=== PATIENT | female | born 1980 | race Two or more races ===

== ENCOUNTER 2023-05-16 18:29 | Inpatient (IN) | payer BC, OTHER ==
[~2023-05-16] VITALS: Ht 162.6 cm; Wt 115.8 kg
[2023-05-16] MEDS ORDERED: BACDST PO (19:01)
[2023-05-16] MEDS ORDERED: VANCOMYCIN 1GM/250ML 250 ML IV ONE (19:45)
[2023-05-16] MEDS ORDERED: PIPERACILLIN-TAZO 4.5GM 100 ML IV ONE (19:45)
[2023-05-16 20:20] LABS: Basophils # (auto) 0 10 ^3/uL (0-0.2); Basophils % (auto) 0.6 % (0.0-2.0); Eosinophils # (auto) 0.3 10 ^3/uL (0-0.8); Eosinophils % (auto) 3.8 % (0.0-7.0); Hematocrit 42.9 % (36.0-46.0); Hemoglobin 14.8 g/dL (12.2-16.2); Lymphocytes # (auto) 2.2 10 ^3/uL (0.4-5.4); Lymphocytes % (auto) 30.1 % (10.0-50.0); Mean Corpuscular Hemoglobin 31.2 pg (28.0-32.0); Mean Corpuscular Hgb Conc. 34.4 g/dL (32.0-36.0); Mean Corpuscular Volume 90.6 fL (80.0-100.0); Monocytes # (auto) 0.5 10 ^3/uL (0-1.3); Monocytes % (auto) 7.6 % (0.0-12.0); Neutrophils # (auto) 4.2 10 ^3/uL (1.6-8.6); Neutrophils % (auto) 57.9 % (37.0-80.0); Nucleated Red Blood Cells % 0.1 %; Red Blood Cells 4.73 10^6/uL (4.0-5.20); White Blood Cell 7.2 10^3/uL (4.4-10.8)
[2023-05-16 20:49] LABS: Alanine Aminotransferase 44 U/L (7-40); Alkaline Phosphatase 80 U/L (46-116); Anion Gap 3 (5-15); Aspartate Aminotransferase 41 U/L (13-40); BUN/Creatinine Ratio 9.3 (10.0-20.0); Blood Urea Nitrogen 7 mg/dL (9-23); Calcium 9.4 mg/dL (8.5-10.1); Carbon Dioxide 28 mmol/L (20-30); Chloride 104 mmol/L (98-107); Glucose 249 mg/dL (74-106); Potassium 4.2 mmol/L (3.5-5.1); Sodium 135 mmol/L (136-145)
[2023-05-16 20:50] LABS: Bilirubin, Total 0.5 mg/dL (0.2-1.0); Total Protein 7.4 g/dL (5.7-8.2)
[2023-05-16 22:58] LABS: Erythrocyte Sedimentation Rate 16 mm/hr (0-20)
[2023-05-16] MEDS ORDERED: hydrALAZINE HCL 20 MG/ML VL IV PRN (23:00)
[2023-05-16] MEDS ORDERED: HYDROcodone-ACET 5/325MG TAB PO PRN (23:00)
[2023-05-16] MEDS ORDERED: DEXTROSE (50%) 50ML SYRG IV PRN (23:00)
[2023-05-16] MEDS ORDERED: MORPHINE SULFATE INJ 2 MG/ml SYRG IV PRN (23:00)
[2023-05-16] MEDS ORDERED: ACETAMINOPHEN 325 MG TAB PO PRN (23:00)
[2023-05-16] MEDS ORDERED: ONDANSETRON HCL 4 MG/2 ML VIAL IV PRN (23:00)
[2023-05-16] MEDS ORDERED: NITROGLYCERIN 0.4 MG SL TAB SL PRN (23:00)
[2023-05-16] MEDS ORDERED: VANCOMYCIN PER PHARMACY 0 MG IV SCH (23:00)
[2023-05-16 23:25] VITALS: PULSE 92; RESP 16; O2SAT 96
[2023-05-16] MEDS: SODIUM CHLORIDE 0.9% 1,000 ML IV SCH (23:43)
[2023-05-17 01:01] LABS: Urine Blood Negative /uL (Negative); Urine Clarity Clear (Clear); Urine Color Yellow (Yellow); Urine Protein, UAD Negative (Negative); Urine Specific Gravity 1.022 (1.001-1.035); Urine Urobilinogen Normal (Negative); Urine WBC <1 /hpf (0 - 5)
[2023-05-17 01:02] LABS: Urine Bacteria NONE SEEN /hpf (None Seen)
[2023-05-17 06:17] LABS: Basophils # (auto) 0 10 ^3/uL (0-0.2); Basophils % (auto) 0.8 % (0.0-2.0); Eosinophils # (auto) 0.3 10 ^3/uL (0-0.8); Eosinophils % (auto) 5.4 % (0.0-7.0); Hematocrit 42.7 % (36.0-46.0); Hemoglobin 14.4 g/dL (12.2-16.2); Lymphocytes # (auto) 2.3 10 ^3/uL (0.4-5.4); Lymphocytes % (auto) 38.1 % (10.0-50.0); Mean Corpuscular Hemoglobin 30.9 pg (28.0-32.0); Mean Corpuscular Hgb Conc. 33.7 g/dL (32.0-36.0); Mean Corpuscular Volume 91.7 fL (80.0-100.0); Monocytes # (auto) 0.6 10 ^3/uL (0-1.3); Monocytes % (auto) 10.4 % (0.0-12.0); Neutrophils # (auto) 2.7 10 ^3/uL (1.6-8.6); Neutrophils % (auto) 45.3 % (37.0-80.0); Nucleated Red Blood Cells % 0.1 %; Red Blood Cells 4.66 10^6/uL (4.0-5.20); Red Cell Distribution Width 13.2 % (11.8-14.3)
[2023-05-17 06:41] LABS: Chloride 106 mmol/L (98-107); Potassium 3.9 mmol/L (3.5-5.1); Sodium 136 mmol/L (136-145)
[2023-05-17 06:42] LABS: Anion Gap 7 (5-15); Carbon Dioxide 23 mmol/L (20-30)
[2023-05-17 06:47] LABS: BUN/Creatinine Ratio 9.4 (10.0-20.0); Blood Urea Nitrogen 6 mg/dL (9-23); Glucose 113 mg/dL (74-106)
[2023-05-17] MEDS: InsuLIN REG 1unit/0.01ml Soln (100units/ml) SC SCH ×3 (08:02→17:00)
[2023-05-17] MEDS: ACCU-CHEK COMFORT CURVE STRIP VI SCH ×4 (08:03→21:20)
[2023-05-17] MEDS: PIPERACILLIN-TAZOB 3.375GM 100 ML IV SCH ×3 (08:18→17:30)
[2023-05-17] MEDS: SODIUM CHLORIDE 0.9% 1,000 ML IV SCH ×2 (09:02→19:53)
[2023-05-17 10:03] VITALS: BP 146/67; PULSE 93; RESP 18; TEMP 98.2; O2SAT 99
[2023-05-17 10:20] VITALS: BP 146/67; PULSE 93; RESP 17; TEMP 98.2; O2SAT 99
[2023-05-17] MEDS: ENOXAPARIN SOD 40 MG/0.4 ML SYRINGE SC SCH (10:52)
[2023-05-17] MEDS: VANCOMYCIN 1GM/250ML 250 ML IV SCH ×2 (10:53→19:53)
[2023-05-17] MEDS: PANTOPRAZOLE 40 MG/10 ML VIAL INJ IV SCH (10:53)
[2023-05-17] MEDS ORDERED: FOLI-119 PO (11:39)
[2023-05-17] MEDS ORDERED: LOSA100T58 PO (11:39)
[2023-05-17] MEDS ORDERED: GLUC1MIS2 (11:39)
[2023-05-17] MEDS ORDERED: [UNRECOGNIZED DRUG - CODE] (11:39)
[2023-05-17] MEDS ORDERED: INSLISPI SC (11:39)
[2023-05-17] MEDS ORDERED: ATOR40TA52 PO (11:39)
[2023-05-17] MEDS ORDERED: METH2.5T PO (11:39)
[2023-05-17 13:00] VITALS: BP 162/80; PULSE 83; RESP 17; TEMP 97.6; O2SAT 98
[2023-05-17 17:00] VITALS: BP 142/83; PULSE 87; RESP 18; TEMP 98; O2SAT 96
[2023-05-17 20:00] VITALS: PULSE 117
[2023-05-17 22:00] VITALS: BP 125/68; PULSE 81; RESP 16; TEMP 97.8; O2SAT 93
[2023-05-17] MEDS ORDERED: InsuLIN REG 1unit/0.01ml Soln (100units/ml) SC SCH (22:00)
[2023-05-18] MEDS: PIPERACILLIN-TAZOB 3.375GM 100 ML IV SCH ×2 (00:48→08:30)
[2023-05-18] MEDS: SODIUM CHLORIDE 0.9% 1,000 ML IV SCH (05:00)
[2023-05-18 05:23] VITALS: BP 127/78; PULSE 81; RESP 18; TEMP 97.7; O2SAT 96
[2023-05-18 05:23] LABS: Basophils # (auto) 0 10 ^3/uL (0-0.2); Basophils % (auto) 0.7 % (0.0-2.0); Eosinophils # (auto) 0.3 10 ^3/uL (0-0.8); Eosinophils % (auto) 6.7 % (0.0-7.0); Hematocrit 39.9 % (36.0-46.0); Hemoglobin 13.7 g/dL (12.2-16.2); Lymphocytes % (auto) 40.8 % (10.0-50.0); Mean Corpuscular Hemoglobin 31.4 pg (28.0-32.0); Mean Corpuscular Hgb Conc. 34.4 g/dL (32.0-36.0); Mean Corpuscular Volume 91.1 fL (80.0-100.0); Monocytes # (auto) 0.7 10 ^3/uL (0-1.3); Monocytes % (auto) 13.4 % (0.0-12.0); Neutrophils # (auto) 1.9 10 ^3/uL (1.6-8.6); Neutrophils % (auto) 38.4 % (37.0-80.0); Nucleated Red Blood Cells % 0.2 %; Red Blood Cells 4.38 10^6/uL (4.0-5.20); Red Cell Distribution Width 12.9 % (11.8-14.3)
[2023-05-18 05:25] LABS: Chloride 108 mmol/L (98-107); Sodium 139 mmol/L (136-145)
[2023-05-18 05:26] LABS: Anion Gap 5 (5-15); Calcium 8.7 mg/dL (8.5-10.1); Carbon Dioxide 26 mmol/L (20-30)
[2023-05-18 05:31] LABS: BUN/Creatinine Ratio 10.4 (10.0-20.0); Blood Urea Nitrogen 7 mg/dL (9-23); Glucose 107 mg/dL (74-106)
[2023-05-18] MEDS: VANCOMYCIN 1GM/250ML 250 ML IV SCH (06:19)
[2023-05-18] MEDS: InsuLIN REG 1unit/0.01ml Soln (100units/ml) SC SCH ×2 (07:00→11:30)
[2023-05-18] MEDS: ACCU-CHEK COMFORT CURVE STRIP VI SCH ×2 (07:20→12:17)
[2023-05-18 08:00] VITALS: PULSE 82; RESP 18; O2SAT 95
[2023-05-18] MEDS: PANTOPRAZOLE 40 MG/10 ML VIAL INJ IV SCH (08:39)
[2023-05-18] MEDS: ENOXAPARIN SOD 40 MG/0.4 ML SYRINGE SC SCH (08:40)
[2023-05-18 09:00] VITALS: BP 124/86; PULSE 102; RESP 18; TEMP 98; O2SAT 95
[2023-05-18] MEDS ORDERED: AUG875T PO (10:29)
[2023-05-18 13:00] VITALS: BP_SYST 128; BP_SYST 150; BP_DIAS 73; BP_DIAS 91; PULSE 74; PULSE 84; RESP 18; TEMP 98; TEMP 98.8; O2SAT 96; O2SAT 97
[2023-05-18 15:16] VITALS: TEMP 37.1
[2023-05-18] MEDS ORDERED: DAKINS QUARTER STR 0.125% (NaHypochlorite) 473 ML TOPICAL SOL TOP SCH (22:00)
== END 2023-05-18 15:45 | disposition home or self-care (01) | DRG 603 ==
LOC: ER 18:29 → TELE 23:02 → TELE-E-ADS 05-17 10:23 → TELE-EAST 05-18 07:56
PROVIDERS: ADMIT Nurse Practitioner Family; ATTEND Nurse Practitioner Family
DX: L03.032 Cellulitis of left toe (principal); M86.8X7 Other osteomyelitis, ankle and foot; I10 Essential (primary) hypertension; E11.65 Type 2 diabetes mellitus with hyperglycemia; E11.69 Type 2 diabetes mellitus with other specified complication; Z79.4 Long term (current) use of insulin
CPT/HCPCS: 36415; 73630; 80048; 80053; 80202; 81001; 82962; 83605; 85025; 85652; 86141; 87040; 96365; 96367; C9113; G0378; J2543